=== PATIENT | male | born 1975 | race Caucasian/White ===

== ENCOUNTER 2016-11-06 12:42 | Emergency (ER) | payer MEDICAID, OTHER ==
[~2016-11-06] VITALS: Ht 170.2 cm; Wt 100.0 kg
[2016-11-06] MEDS ORDERED: IBUPROFEN 600MG TABLET PO ONE (13:30)
[2016-11-06 14:31] VITALS: BP 112/80
== END 2016-11-06 15:29 | disposition home or self-care (01) ==
LOC: ER 12:42
DX: M79.662 Pain in left lower leg (principal); I10 Essential (primary) hypertension
CPT/HCPCS: 93971; 99284; Z7610